=== PATIENT | female | born 1980 | race Asian ===

== ENCOUNTER 2017-06-28 02:23 | Emergency (ER) | payer OTHER ==
[~2017-06-28] VITALS: Ht 170.2 cm; Wt 153.3 kg
[2017-06-28 03:30] VITALS: BP 123/78; TEMP 98.7
== END 2017-06-28 03:32 | disposition home or self-care (01) ==
LOC: ED 02:23
DX: M54.12 Radiculopathy, cervical region (principal)
CPT/HCPCS: 99282

== ENCOUNTER 2018-10-05 15:42 | Emergency (ER) | payer OTHER ==
[~2018-10-05] VITALS: Ht 170.2 cm; Wt 136.1 kg
[2018-10-05 16:45] LABS: PLATELET COUNT 424 K/uL (152-353)
[2018-10-05 17:16] LABS: POTASSIUM 3.9 mmol/L (3.6-5.2); SODIUM 140 mmol/L (136-145)
[2018-10-05] MEDS ORDERED: MEDROL DOSEPAK4 MG PO (19:30)
[2018-10-05] MEDS ORDERED: PROVENTIL INH (19:30)
[2018-10-05] MEDS ORDERED: DOXYCYC MONO100 M1 PO (19:30)
[2018-10-05 19:44] VITALS: BP 161/78; TEMP 98.6
== END 2018-10-05 19:44 | disposition home or self-care (01) ==
LOC: ED 15:42
PROVIDERS: Student in an Organized Health Care Education/Training Program
DX: R05 Cough (principal); R06.2 Wheezing
CPT/HCPCS: 36415; 80053; 83735; 83880; 84484; 85027; 87040; 93005; 94664; 96365; 96374; 99284; J2930; Q9963

== ENCOUNTER 2018-11-01 18:18 | Emergency (ER) | payer OTHER ==
[~2018-11-01] VITALS: Ht 170.2 cm; Wt 136.1 kg
[~2018-11-01 18:18] MED LIST: DOXYCYC MONO100 M1 PO; MEDROL DOSEPAK4 MG PO; PROVENTIL INH
[2018-11-01] MEDS ORDERED: CETI10TA PO (18:29)
[2018-11-01 18:58] LABS: PLATELET COUNT 279 K/uL (152-353)
[2018-11-01 19:07] LABS: POTASSIUM 3.7 mmol/L (3.6-5.2)
[2018-11-01 21:46] VITALS: BP 124/68; TEMP 97.9
== END 2018-11-01 21:49 | disposition home or self-care (01) ==
LOC: ED 18:18
PROVIDERS: Family Medicine
DX: J45.901 Unspecified asthma with (acute) exacerbation (principal)
CPT/HCPCS: 80053; 85027; 94664; 96374; 99284; J2930

== ENCOUNTER 2019-02-11 16:35 | Outpatient (CLI) | payer OTHER ==
[~2019-02-11 16:35] MED LIST changes: +CETI10TA PO
[2019-02-11 17:12] LABS: PLATELET COUNT 365 K/uL (152-353)
== END 2019-02-11 19:34 | disposition home or self-care (01) ==
LOC: LABW 16:35
PROVIDERS: Internal Medicine Critical Care Medicine
DX: J45.909 Unspecified asthma, uncomplicated (principal)
CPT/HCPCS: 36415; 82785; 85027; 86003

== ENCOUNTER 2019-03-10 11:28 | Outpatient (CLI) | payer OTHER | END 2019-03-10 11:40 | disposition short-term general hospital (02) | LOC: AMB 11:28 | DX: J45.901 Unspecified asthma with (acute) exacerbation (principal) | CPT/HCPCS: A0425; A0427 ==

== ENCOUNTER 2019-03-10 11:44 | Emergency (ER) | payer OTHER ==
[~2019-03-10] VITALS: Ht 170.2 cm; Wt 138.3 kg
[2019-03-10 11:44] VITALS: TEMP 97.3
[2019-03-10 12:12] LABS: PLATELET COUNT 369 K/uL (152-353)
[2019-03-10 12:19] LABS: POTASSIUM 3.2 mmol/L (3.6-5.2); SODIUM 141 mmol/L (136-145)
[2019-03-10 16:45] VITALS: BP 126/71
== END 2019-03-10 16:45 | disposition home or self-care (01) ==
LOC: ED 11:48
PROVIDERS: Emergency Medicine
DX: J45.909 Unspecified asthma, uncomplicated (principal)
CPT/HCPCS: 36600; 80053; 82550; 82553; 82805; 84484; 85027; 85379; 93005; 99284; Q9963

== ENCOUNTER 2019-06-14 15:31 | Emergency (ER) | payer OTHER ==
[~2019-06-14] VITALS: Ht 170.2 cm; Wt 142.4 kg
[2019-06-14 16:06] LABS: PLATELET COUNT 298 K/uL (152-353)
[2019-06-14 16:14] LABS: POTASSIUM 3.7 mmol/L (3.6-5.2)
[2019-06-14 17:55] VITALS: BP 124/72; TEMP 97.9
== END 2019-06-14 17:55 | disposition home or self-care (01) ==
LOC: ED 15:31
PROVIDERS: Emergency Medicine
DX: J45.901 Unspecified asthma with (acute) exacerbation (principal)
CPT/HCPCS: 80053; 83036; 83880; 85027; 85379; 94664; 96365; 96375; 99284; J2930; J3475

== ENCOUNTER 2019-07-13 12:00 | Outpatient (CLI) | payer BC, OTHER | END 2019-07-13 19:33 | disposition home or self-care (01) | LOC: MAMMO 12:00 | DX: Z12.31 Encounter for screening mammogram for malignant neoplasm of breast (principal) ==

== ENCOUNTER 2019-07-28 11:03 | Outpatient (CLI) | payer BC, OTHER | END 2019-07-28 22:31 | disposition home or self-care (01) | LOC: US 11:03 → MAMMO 11:30 → US 22:31 | DX: R92.8 Other abnormal and inconclusive findings on diagnostic imaging of breast (principal) ==

== ENCOUNTER 2020-05-20 04:22 | Emergency (ER) | payer OTHER ==
[~2020-05-20] VITALS: Ht 170.2 cm; Wt 142.9 kg
[2020-05-20 05:44] LABS: PLATELET COUNT 333 K/uL (152-353)
[2020-05-20 05:53] LABS: POTASSIUM 3.8 mmol/L (3.6-5.2)
[2020-05-20 07:15] VITALS: BP 137/89; TEMP 98.6
== END 2020-05-20 07:15 | disposition home or self-care (01) ==
LOC: ED 04:22
PROVIDERS: Family Medicine
DX: J45.901 Unspecified asthma with (acute) exacerbation (principal); J30.89 Other allergic rhinitis; Z20.828 Contact with and (suspected) exposure to other viral communicable diseases
CPT/HCPCS: 36415; 80053; 85027; 87502; 87635; 94664; 96374; 99284; J2930; U0003

== ENCOUNTER 2021-12-06 17:39 | Emergency (ER) | payer OTHER ==
[~2021-12-06] VITALS: Ht 170.2 cm; Wt 158.8 kg
[2021-12-06 20:12] LABS: PLATELET COUNT 309 K/uL (152-353)
[2021-12-06 20:21] LABS: POTASSIUM 4.1 mmol/L (3.6-5.2)
[2021-12-07] VITALS: TEMP 97.9
[2021-12-07 00:30] VITALS: BP 165/88
== END 2021-12-07 00:35 | disposition short-term general hospital (02) ==
LOC: ED 17:39
PROVIDERS: Emergency Medicine
DX: I16.1 Hypertensive emergency (principal); R94.31 Abnormal electrocardiogram [ECG] [EKG]; Z11.52 Encounter for screening for COVID-19
CPT/HCPCS: 36415; 80053; 80307; 81002; 81015; 83880; 84484; 85027; 85610; 85730; 87635; 93005; 96365; 96375; 99284; J0360; J3490; U0003

== ENCOUNTER 2022-05-03 17:41 | Emergency (ER) | payer OTHER ==
[~2022-05-03] VITALS: Ht 170.2 cm; Wt 154.2 kg
[2022-05-03 19:40] VITALS: BP 149/90; TEMP 98.8
== END 2022-05-03 19:40 | disposition short-term general hospital (02) ==
LOC: ED 17:41
DX: M79.605 Pain in left leg (principal); M79.604 Pain in right leg; Z98.890 Other specified postprocedural states
CPT/HCPCS: 99283